=== PATIENT | female | born 1950 | race Caucasian/White ===

== ENCOUNTER 2025-03-28 07:35 | Day surgery (SDC) | payer MEDICARE ==
[2025-03-28] MEDS ORDERED: Sodium Bicarbonate 2.5 MEQ/5 ML SDV ONE ×2 (08:12→09:10)
[2025-03-28] MEDS ORDERED: Lidocaine 1% w/Epinephrine 1:100K 20 ML VIAL ONE ×2 (08:12→09:10)
[2025-03-28 08:13] LABS: Hematocrit 31.1 % (36.0-47.0); Hemoglobin 10.5 g/dL (12.0-16.0); Mean Corpuscular Hemoglobin 34.8 pg (27.0-31.0); Mean Corpuscular Volume 103.0 fL (78.0-98.0); Platelet Count 206 10x3/uL (130-400); Red Blood Cell (RBC) Count 3.02 mill/uL (4.20-5.40); White Blood Cell (WBC) Count 19.67 10x3/uL (4.8-10.8)
[2025-03-28 08:22] LABS: PTT 33.9 sec (22.9-36.1)
[2025-03-28 08:23] LABS: INR-International Normal Ratio 1.2; Prothrombin Time 15.5 sec (12.0-14.7)
[2025-03-28 09:04] LABS: Anisocytosis SLIGHT = 6-15 cells HPF (0-5); Macrocytosis SLIGHT = 6-15 cells HPF (0-5); Nucleated RBC (Manual Ct) 2 % (0); Ovalocytes SLIGHT = 2-5 cells HPF (0-1); Platelet Adequacy Comment Platelets Normal; Polychromasia SLIGHT = 2-3 cells HPF (0-2); Smudge Cells 1.0 %; Stomatocytes SLIGHT = 2-5 cells HPF (0-1)
[2025-03-28] MEDS ORDERED: Ondansetron PF 4 MG/2 ML Vial ONE (09:08)
[2025-03-28] MEDS ORDERED: CEFAZOLIN 1 GM VIAL ONE (09:26)
[2025-03-28] MEDS ORDERED: CEFAZOLIN 2 GM VIAL ONE (09:26)
[2025-03-28 09:48] VITALS: BP 102/62; TEMP 98.2
== END 2025-03-28 13:25 | disposition home or self-care (01) ==
LOC: SPEC 07:35
PROVIDERS: ATTEND Internal Medicine
PROC: 0JH60WZ Insertion of Totally Implantable Vascular Access Device into Chest Subcutaneous Tissue and Fascia, Open Approach (ICD-10-PCS; principal; 2025-03-28)
DX: C93.10 Chronic myelomonocytic leukemia not having achieved remission (principal); M80.08XA Age-related osteoporosis with current pathological fracture, vertebra(e), initial encounter for fracture; E11.9 Type 2 diabetes mellitus without complications; E07.9 Disorder of thyroid, unspecified; J45.909 Unspecified asthma, uncomplicated; Z85.3 Personal history of malignant neoplasm of breast; Z96.649 Presence of unspecified artificial hip joint; Z90.710 Acquired absence of both cervix and uterus; Z90.49 Acquired absence of other specified parts of digestive tract; Z88.0 Allergy status to penicillin; Z88.5 Allergy status to narcotic agent; Z79.85 Long-term (current) use of injectable non-insulin antidiabetic drugs; Z79.51 Long term (current) use of inhaled steroids
CPT/HCPCS: 36561; 71045; 71046; 76937 ×2; 77001 ×2; 85025; 85610; 85730; C1769 ×2; C1788; J0690; J1642; J2250; J7030; 99152; 99153

== ENCOUNTER 2025-04-04 12:29 | Outpatient (CLI) | payer MEDICARE | END 2025-04-04 12:30 | disposition home or self-care (01) | LOC: RAD 12:29 | PROVIDERS: ATTEND Internal Medicine | DX: C93.10 Chronic myelomonocytic leukemia not having achieved remission (principal); M80.08XA Age-related osteoporosis with current pathological fracture, vertebra(e), initial encounter for fracture | CPT/HCPCS: 36598; J1642; Q9967 ==

== ENCOUNTER 2025-06-04 08:20 | Day surgery (SDC) | payer MEDICARE ==
[2025-06-04] MEDS ORDERED: diphenhydrAMINE 25 MG CAP PO SCH (08:45)
[2025-06-04] MEDS: Hydrocortisone Sod Succ/PF 100 mg/2 ml Vial IVP SCH (09:27)
[2025-06-04] MEDS: Acetaminophen 500 MG TAB PO SCH (09:28)
[2025-06-04] MEDS ORDERED: Acetaminophen 500 MG TAB ONE (09:28)
[2025-06-04 16:28] VITALS: BP 102/52; TEMP 98.2
== END 2025-06-04 11:10 | disposition home or self-care (01) ==
LOC: ONC/OP 08:20
PROVIDERS: ATTEND Internal Medicine
DX: D69.59 Other secondary thrombocytopenia (principal); D64.9 Anemia, unspecified
CPT/HCPCS: 36430; 86850; 86900; 86901; J1720; P9035

== ENCOUNTER 2025-06-05 09:55 | Day surgery (SDC) | payer MEDICARE ==
[2025-06-05] MEDS ORDERED: Acetaminophen 500 MG TAB ONE (10:48)
[2025-06-05] MEDS ORDERED: diphenhydrAMINE 25 MG CAP ONE (10:48)
[2025-06-05] MEDS: diphenhydrAMINE 25 MG CAP PO SCH (10:49)
[2025-06-05] MEDS: Acetaminophen 500 MG TAB PO SCH (10:49)
[2025-06-05 12:31] VITALS: BP 110/55; TEMP 97.8
== END 2025-06-05 12:31 | disposition home or self-care (01) ==
LOC: ONC/OP 09:55
PROVIDERS: ATTEND Internal Medicine Hematology & Oncology
DX: D69.59 Other secondary thrombocytopenia (principal); D64.9 Anemia, unspecified; C93.10 Chronic myelomonocytic leukemia not having achieved remission; C92.A0 Acute myeloid leukemia with multilineage dysplasia, not having achieved remission
CPT/HCPCS: 36430; 86850; 86900; 86901; J1642; P9035; 80053; 83615; 83735; 84100; 84550

== ENCOUNTER 2025-06-10 10:45 | Day surgery (SDC) | payer MEDICARE ==
[2025-06-10] MEDS ORDERED: Acetaminophen 500 MG TAB ONE (11:33)
[2025-06-10] MEDS: Acetaminophen 500 MG TAB PO SCH (11:36)
[2025-06-10] MEDS: diphenhydrAMINE 25 MG CAP PO SCH (11:36)
[2025-06-10 12:50] VITALS: TEMP 98.1
[2025-06-10 12:51] VITALS: BP 105/59
== END 2025-06-10 12:45 | disposition home or self-care (01) ==
LOC: ONC/OP 10:45
PROVIDERS: ATTEND Internal Medicine
DX: D69.6 Thrombocytopenia, unspecified (principal); D64.9 Anemia, unspecified; C93.10 Chronic myelomonocytic leukemia not having achieved remission; C92.A0 Acute myeloid leukemia with multilineage dysplasia, not having achieved remission; Z86.2 Personal history of diseases of the blood and blood-forming organs and certain disorders involving the immune mechanism
CPT/HCPCS: 36430; 86850; 86900; 86901; P9035; 36415; 80053; 83615; 83735; 84100; 84550; 85379; 85384; 85610; 85730

== ENCOUNTER → 2025-06-14 | Day surgery (SDC) | payer MEDICARE ==
[~2025-06-14] MED LIST: Acetaminophen 500 MG TAB ONE; diphenhydrAMINE 25 MG CAP ONE
[2025-06-14] MEDS: diphenhydrAMINE 25 MG CAP PO SCH (10:58)
[2025-06-14] MEDS: Acetaminophen 500 MG TAB PO SCH (10:58)
[2025-06-14 11:58] VITALS: TEMP 98.1
[2025-06-14 11:59] VITALS: BP 111/54
== END ==
LOC: ONC/OP 09:42
PROVIDERS: ATTEND Internal Medicine
DX: D69.6 Thrombocytopenia, unspecified (principal); C93.10 Chronic myelomonocytic leukemia not having achieved remission; C92.A0 Acute myeloid leukemia with multilineage dysplasia, not having achieved remission; Z86.2 Personal history of diseases of the blood and blood-forming organs and certain disorders involving the immune mechanism
CPT/HCPCS: 36430; 86850; 86900; 86901; J1642; P9035; 36415; 80053; 83615; 83735; 84100; 84550; 85379; 85384; 85610; 85730

== ENCOUNTER 2025-06-17 10:11 | Day surgery (SDC) | payer MEDICARE ==
[2025-06-17] MEDS ORDERED: diphenhydrAMINE 25 MG CAP ONE (11:44)
[2025-06-17] MEDS ORDERED: Acetaminophen 500 MG TAB ONE (11:44)
[2025-06-17] MEDS: Acetaminophen 500 MG TAB PO SCH (11:45)
[2025-06-17] MEDS: diphenhydrAMINE 25 MG CAP PO SCH (11:45)
[2025-06-17 14:42] VITALS: TEMP 98.4
[2025-06-17 15:07] VITALS: BP 98/52
== END 2025-06-17 15:07 | disposition home or self-care (01) ==
LOC: ONC/OP 10:11
PROVIDERS: ATTEND Internal Medicine
DX: D64.9 Anemia, unspecified (principal); D69.6 Thrombocytopenia, unspecified
CPT/HCPCS: 36430; 86850; 86900; 86901; 86920; P9016; P9035

== ENCOUNTER 2025-06-27 09:37 | Day surgery (SDC) | payer MEDICARE ==
[2025-06-27] MEDS ORDERED: diphenhydrAMINE 25 MG CAP PO SCH (10:00)
[2025-06-27] MEDS ORDERED: Acetaminophen 500 MG TAB PO SCH (10:00)
[2025-06-27 12:16] VITALS: BP 104/51; TEMP 98.1
== END 2025-06-27 12:17 | disposition home or self-care (01) ==
LOC: ONC/OP 09:37
PROVIDERS: ATTEND Internal Medicine
DX: D69.6 Thrombocytopenia, unspecified (principal); D64.9 Anemia, unspecified; C92.A0 Acute myeloid leukemia with multilineage dysplasia, not having achieved remission; C93.10 Chronic myelomonocytic leukemia not having achieved remission; Z86.2 Personal history of diseases of the blood and blood-forming organs and certain disorders involving the immune mechanism
CPT/HCPCS: 36430; 86850; 86900; 86901; J1642; P9035; 80053; 83615; 83735; 84100; 84550; 85379; 85384; 85610; 85730

== ENCOUNTER 2025-07-03 09:59 | Day surgery (SDC) | payer MEDICARE ==
[2025-07-03] MEDS ORDERED: diphenhydrAMINE 25 MG CAP PO SCH (10:30)
[2025-07-03] MEDS ORDERED: Acetaminophen 500 MG TAB PO SCH (10:30)
[2025-07-03 14:28] VITALS: BP 110/51; TEMP 98.3
== END 2025-07-03 14:02 | disposition home or self-care (01) ==
LOC: ONC/OP 09:59
PROVIDERS: ATTEND Internal Medicine
DX: D64.9 Anemia, unspecified (principal); D69.6 Thrombocytopenia, unspecified; C92.A0 Acute myeloid leukemia with multilineage dysplasia, not having achieved remission; C93.10 Chronic myelomonocytic leukemia not having achieved remission
CPT/HCPCS: 36430; 86850; 86900; 86901; 86920; J1642; P9016; P9035; 80053; 83615; 83735; 84100; 84550

== ENCOUNTER 2025-07-07 10:38 | Emergency (ER) | payer MEDICARE ==
[~2025-07-07 10:38] MED LIST changes: -Acetaminophen 500 MG TAB ONE; +Iopamidol-370 76% 500 ML MDV (1 ML CHARGE) ONE; -diphenhydrAMINE 25 MG CAP ONE
[2025-07-07 11:35] LABS: Platelet Count 23 10x3/uL (130-400)
[2025-07-07 11:36] LABS: Hematocrit 23.2 % (36.0-47.0); Hemoglobin 7.6 g/dL (12.0-16.0); Mean Corpuscular Hemoglobin 27.5 pg (27.0-31.0); Mean Corpuscular Volume 84.1 fL (78.0-98.0); Red Blood Cell (RBC) Count 2.76 mill/uL (4.20-5.40); White Blood Cell (WBC) Count 3.80 10x3/uL (4.8-10.8)
[2025-07-07] MEDS ORDERED: Ondansetron PF 4 MG/2 ML Vial ONE (11:37)
[2025-07-07 11:49] LABS: ALT (SGPT) Less than 7 U/L (Less than 34); AST (SGOT) 7 U/L (11-34); Albumin 3.2 g/dL (3.1-4.5); Alkaline Phosphatase 137 U/L (40-110); Anion Gap 14 mmol/L (10-20); BUN (Urea Nitrogen) 13 mg/dL (9.8-20.1); Bilirubin, Total 0.7 mg/dL (0.3-1.2); Calc. Creatinine Clearance 0 mL/min (70-130); Calcium 8.2 mg/dL (7.8-10.44); Carbon Dioxide 24 mmol/L (23-31); Chloride 101 mmol/L (98-107); Globulin 2.4 g/dL (2.4-3.5); Glucose 198 mg/dL (83-110); Lipase 4 U/L (8-78); Magnesium 1.6 mg/dL (1.6-2.6); Potassium 3.4 mmol/L (3.5-5.1); Sodium 136 mmol/L (136-145)
[2025-07-07 12:00] LABS: Ovalocytes SLIGHT = 2-5 cells HPF (0-1); Platelet Adequacy Comment Significant Decrease; Polychromasia SLIGHT = 2-3 cells HPF (0-2)
[2025-07-07 13:52] LABS: Actual Bicarbonate (HCO3v) 21.8 mEq/L (22-28); Base Excess -1.8 mEq/L (-2.0 to +3.0); Calcium, Ionized (venous) 1.04 mmol/L (1.16-1.32); Chloride (VBG) 100 mmol/L (98-106); Hematocrit-VBG 20 % (36.0-47.0); Hemoglobin (Hb) 6.9 g/dL (11.7-16.1); Potassium (VBG) 3.59 mmol/L (3.70-5.30); Sodium 134 mmol/L (133-146)
[2025-07-07 13:58] LABS: Bacteria/HPF None Seen HPF (None Seen); CAUTI Indications for Culture Dysuria,urgency,freq; Glucose, Urine (Dipstick) Normal (Negative); Leukocyte Negative Leu/uL (Negative); Protein, Urine (Dipstick) Negative (Neg-Trace); RBC/HPF None Seen HPF (0-3); Specific Gravity, Urine 1.018 (1.002-1.036); WBC/HPF None Seen HPF (0-3)
[2025-07-07 14:00] LABS: Urine Culture Reflex No No
== END 2025-07-07 18:14 | disposition home or self-care (01) ==
LOC: ERS 10:38
DX: R05.9 Cough, unspecified (principal); C92.00 Acute myeloblastic leukemia, not having achieved remission; D61.818 Other pancytopenia; E11.9 Type 2 diabetes mellitus without complications; Z55.6 Problems related to health literacy
CPT/HCPCS: 36430; 51701; 71045; 71275; 74174; 80053; 81001; 82805; 83605; 83690; 83735; 83880; 84484 ×2; 85025; 86850; 86900; 86901; 86920; 87040; 87086; 87149 ×2; 87428; 93005; 96374; 96375; 99285; J2272; J2405; P9016; Q9967

== ENCOUNTER 2025-07-09 10:13 | Day surgery (SDC) | payer MEDICARE ==
[2025-07-09] MEDS ORDERED: Acetaminophen 500 MG TAB ONE (11:47)
[2025-07-09] MEDS ORDERED: diphenhydrAMINE 25 MG CAP ONE (11:47)
[2025-07-09] MEDS: Acetaminophen 500 MG TAB PO SCH (12:00)
[2025-07-09] MEDS: Hydrocortisone Sod Succ/PF 100 mg/2 ml Vial IVP SCH (12:00)
[2025-07-09] MEDS: diphenhydrAMINE 25 MG CAP PO SCH (12:01)
[2025-07-09 13:26] VITALS: BP 119/59; TEMP 98.7
[2025-07-09] MEDS ORDERED: FLU (Fluad Triv) 25-26 (65UP)PF 45 MCG/0.5 ML Syringe IM ONE (13:45)
== END 2025-07-09 13:28 | disposition home or self-care (01) ==
LOC: ONC/OP 10:13
PROVIDERS: ATTEND Internal Medicine
DX: D69.6 Thrombocytopenia, unspecified (principal); D64.9 Anemia, unspecified
CPT/HCPCS: 36430; 86850; 86900; 86901; 90653; 96374; J1720; P9035